=== PATIENT | male | born 1960 | race African-American/Black ===

== ENCOUNTER 2018-11-28 10:41 | Emergency (ER) | payer BC ==
[2018-11-28 10:50] VITALS: BP 148/71; PULSE 77; TEMP 98.2; BMI 35.3
--- NOTE | 2018-11-28 11:57 | PDOC ---
History of Present Illness - General Chief Complaint: Lightheaded Stated Complaint: DIZZINESS Time Seen by Provider: 11/28/18 11:23 Past History - Past Medical History Allergies/Adverse Reactions: Allergies Allergy/AdvReac Type Severity Reaction Status Date / Time No Known Allergies Allergy Verified 11/28/18 10:46 Home Medications: Ambulatory Orders Meclizine HCl 25 mg PO TID #30 tablet 11/28/18 COPD: No CHF: No DVT: No Dementia: No HTN: Yes - Immunization History Immunization Up to Date: Yes - Suicide/Smoking/Psychosocial Hx Smoking History: Never smoked Hx Alcohol Use: No Drug/Substance Use Hx: No *Physical Exam - Vital Signs Last Vital Signs Temp Pulse Resp BP Pulse Ox 98.2 F 77 18 148/71 98 11/28/18 10:47 11/28/18 10:47 11/28/18 10:47 11/28/18 10:47 11/28/18 10:47 ED Treatment Course - LABORATORY CBC & Chemistry Diagram: 11/28/18 12:25 11/28/18 12:25 *DC/Admit/Observation/Transfer Diagnosis at time of Disposition: Dizziness - Discharge Dispostion Disposition: HOME Condition at time of disposition: Stable Decision to Admit order: No - Prescriptions Prescriptions: Meclizine HCl 25 mg PO TID #30 tablet - Referrals Referrals: Patricio Coburn MD [Primary Care Provider] - Aj Jaramillo MD [Staff Physician] - Cole Michel MD [Staff Physician] - - Patient Instructions Printed Discharge Instructions: DI for Vertigo Additional Instructions: You were evaluated for your dizziness. Your physical exam and lab work was normal today Please take the Meclizine every 8 hours as needed for dizziness Drink plenty of fluids Follow up with both ENT (Dr. Jaramillo's group) and Neurology (Dr. Michel) Return to the ED for increased dizziness, vomiting, or if you have any changes in your symptoms - Post Discharge Activity Forms/Work/School Notes: Back to Work
[2018-11-28] MEDS ORDERED: MECLIZINE HCL 25 MG TABLET (FP) PO ONE (12:01)
[2018-11-28] MEDS ORDERED: SODIUM CHLORIDE 1,000 ML IV STA (12:01)
[2018-11-28] MEDS ORDERED: MECLIZINE HCL 25 MG TABLET (FP) ONE (12:43)
[2018-11-28 12:53] LABS: BASO % 0.9 % (0-2.0); EOS % 1.6 % (0-4.5); HEMATOCRIT 43.6 % (35.4-49); HEMOGLOBIN 14.9 GM/dL (11.7-16.9); LYMPH % 37.8 % (8-40); MCHC 34.2 g/dl (32.0-35.9); MEAN CELL VOLUME 90.5 fl (80-96); MEAN PLT VOLUME 8.6 fl (7.5-11.1); MONO % 9.5 % (3.8-10.2); NEUT % 50.2 % (42.8-82.8); PLATELET COUNT 175 K/MM3 (134-434); RBC 4.81 M/mm3 (4.00-5.60); RDW 13.5 % (11.9-15.9); WHITE BLOOD COUNT 6.3 K/mm3 (4.0-10.0)
[2018-11-28 13:29] LABS: ALBUMIN 3.4 g/dl (3.4-5.0); ALK PHOS 93 U/L (45-117); ANION GAP 4 MMOL/L (8-16); BILIRUBIN,TOTAL 0.9 mg/dL (0.2-1); BLOOD UREA NITROGEN 11 mg/dL (7-18); CALCIUM 8.5 mg/dL (8.5-10.1); CHLORIDE 105 mmol/L (98-107); CO2 27 mmol/L (21-32); CREATININE 0.7 mg/dL (0.55-1.3); GLUCOSE,RANDOM 116 mg/dL (74-106); POTASSIUM 4.9 mmol/L (3.5-5.1); SGOT/AST 34 U/L (15-37); SGPT/ALT 37 U/L (13-61); SODIUM 136 mmol/L (136-145)
[2018-11-28 13:38] LABS: INR 1.08 (0.83-1.09); PROTHROMBIN TIME (PATIENT) 12.7 SEC (9.7-13.0)
--- NOTE | 2018-11-29 14:29 | EKG ---
Test Reason : Blood Pressure : / mmHG Vent. Rate : 060 BPM Atrial Rate : 060 BPM P-R Int : 132 ms QRS Dur : 078 ms QT Int : 392 ms P-R-T Axes : 048 053 051 degrees QTc Int : 392 ms NORMAL SINUS RHYTHM NORMAL ECG NO PREVIOUS ECGS AVAILABLE Confirmed by MD DIONI, MEGAN ([id number]) on 11/29/2018 2:28:54 PM Referred By: Confirmed By:MEGAN WHEATLEY MD
== END 2018-11-28 15:35 | disposition home or self-care (01) ==
LOC: JER 10:41
PROC: 3E0337Z Introduction of Electrolytic and Water Balance Substance into Peripheral Vein, Percutaneous Approach (ICD-10-PCS; principal; 2018-11-28)
DX: R42 Dizziness and giddiness (principal); I10 Essential (primary) hypertension
CPT/HCPCS: 36415; 80053; 82550; 84484; 85025; 85610; 93005; 93010; 99282-25; J7030

== ENCOUNTER 2019-10-27 14:41 | Emergency (ER) | payer BC ==
[2019-10-27 14:49] VITALS: BP 145/98; PULSE 103; TEMP 97.1
--- NOTE | 2019-10-27 14:54 | PDOC ---
Rapid Medical Evaluation Time Seen by Provider: 10/27/19 14:46 Medical Evaluation: Allergies Allergy/AdvReac Type Severity Reaction Status Date / Time No Known Allergies Allergy Verified 11/28/18 10:46 10/27/19 14:47 HPI: The patient is a 59 yr old with no past medical history, who presents for cough, diarrhea 2-3 /day (watery light brown) , chills, temperature tmax 99.0, decreased taste x 5 days. The patient has possible exposure to coronavirus. - Recent travel. Pt is not a smoker and is a prediabetic. They are concerned they have coronavirus and present for testing. Intermittent difficulty breathing, - shortness of breath, -chest pain, -lightheadedness, -dizziness, - nausea, vomiting, and diarrhea. Other 12 point ROS reviewed and negative. EXAM: General: NAD, well-appearing, AO x3. vss ENT: No rhinorrhea or nasal congestion. Neck: FROM, no midline tenderness Lungs: Clear to auscultation bilateral without wheezes rales or rhonchi. Normal excursion. Patient is able to speak in full sentences. Heart: Regular rate and rhythm, S1-S2 present, no murmurs rubs or gallops. Abdomen: Non-distended MSK/Extremities: no decreased ROM, no obvious deformities. No obvious cyanosis Neuro: Normal gait, cranial nerves II through XII grossly intact. SKIN: No rashes, bruising. Color normal appearing A/P: respiratory complaint and diarrhea Patient has no past medical history, denies recent travel and known COVID exposure. Patient does not meet criteria for testing at this time. We will refer the patient to outpatient testing clinics in the [facility] for further monitoring of their symptoms. Strict return precautions given. Instructed that if they should have shortness of breath, chest pain or difficulty breathing to return to the emergency room for further management and treatment. Recommend self-isolation for 14 days given symptoms. Discharge home I discussed the physical exam findings, ancillary test results and final diagnoses with the patient. I answered all of the patient's questions. The patient was satisfied with the care received and felt comfortable with the discharge plan and treatment plan. The Patient agrees to follow up with the primary care physician/specialist within 24-72 hours. Return precautions were given. Discharge Disposition - Diagnosis Cough - Discharge Dispostion Disposition: HOME Condition at time of disposition: Good - Referrals - Patient Instructions Printed Discharge Instructions: [facility] COVID-19 Isolation Protocol, [facility]Coronavirus Instructions Additional Instructions: You were seen for your cough and possible Pelaez virus (COVID-19) Please call [phone] or visit [email or web address] Please call [phone] from 8:30 a.m. - 6 p.m. Take Tylenol 650mg every 6 hours as needed for fever or pain You may take robitussin or other over the counter cough syrup. Follow the dosing instructions on the bottle. Warm tea, honey, and salt water gargles may help your symptoms. Return to the ER for shortness of breath, difficulty breathing, chest pain, or if you have any changes in your symptoms. - Post Discharge Activity
== END 2019-10-27 15:30 | disposition home or self-care (01) ==
LOC: JER 14:41
DX: R05 Cough (principal)
CPT/HCPCS: 99282-25

== ENCOUNTER 2020-06-28 15:04 | Emergency (ER) | payer BC ==
[2020-06-28 15:24] VITALS: BMI 34.7
[2020-06-28] MEDS ORDERED: LACTATED RINGERS SOLUTION 1000 ML INFUS.BAG IV ONE (16:07)
[2020-06-28 16:37] LABS: BASO % 0.9 % (0-2.0); HEMATOCRIT 47.2 % (35.4-49); HEMOGLOBIN 15.6 GM/dL (11.7-16.9); LYMPH % 37.6 % (8-40); MCH 30.2 pg (25.7-33.7); MCHC 33.1 g/dl (32.0-35.9); MEAN PLT VOLUME 8.9 fl (7.5-11.1); MONO % 7.3 % (3.8-10.2); NEUT % 53.2 % (42.8-82.8); PLATELET COUNT 194 K/MM3 (134-434); RBC 5.18 M/mm3 (4.00-5.60); RDW 13.3 % (11.9-15.9); WHITE BLOOD COUNT 7.5 K/mm3 (4.0-10.0)
[2020-06-28 16:57] LABS: CHLORIDE 104 mmol/L (98-107); POTASSIUM 4.1 mmol/L (3.5-5.1); SODIUM 137 mmol/L (136-145)
[2020-06-28 16:59] LABS: ANION GAP 8 MMOL/L (8-16); BLOOD UREA NITROGEN 13.7 mg/dL (7-18); CO2 25 mmol/L (21-32); GLUCOSE,RANDOM 102 mg/dL (74-106)
[2020-06-28 17:03] LABS: SGOT/AST 43 U/L (15-37); SGPT/ALT 42 U/L (13-61)
[2020-06-28 17:04] LABS: BILIRUBIN,TOTAL 1.6 mg/dL (0.2-1); TOT PROT 7.6 g/dl (6.4-8.2)
[2020-06-28 17:05] LABS: ALK PHOS 78 U/L (45-117)
[2020-06-28 18:53] LABS: EPI CELLS 33 /uL (0-25.1); HYALINE CASTS 5 /uL (0-3.1); URINE APPEARANCE CLEAR; URINE BACTERIA 784 /uL (0-1359); URINE BILIRUBIN NEGATIVE (NEGATIVE); URINE COLOR YELLOW; URINE GLUCOSE (UA) NEGATIVE (NEGATIVE); URINE KETONE NEGATIVE (NEGATIVE); URINE LEUK ESTERASE 1+ (NEGATIVE); URINE NITRITE NEGATIVE (NEGATIVE); URINE PROTEIN NEGATIVE (NEGATIVE); URINE RBC 5 /uL (0-23.9); URINE WBC 67 /uL (0-25.8)
[2020-06-28 19:25] VITALS: BP 110/72; PULSE 77; TEMP 98.2
== END 2020-06-28 19:25 | disposition home or self-care (01) ==
LOC: JER 15:04
DX: R42 Dizziness and giddiness (principal)
CPT/HCPCS: 36415; 80053; 81003; 82962; 84484; 85025; 93005; 93010; 99285-25

== ENCOUNTER 2022-05-05 16:48 | Emergency (ER) | payer BC ==
[2022-05-05 16:53] VITALS: TEMP 97.8; BMI 35.9
[2022-05-05] MEDS ORDERED: MECLIZINE HCL 25 MG TABLET (FP) PO ONE (19:21)
[2022-05-05] MEDS ORDERED: MECLIZINE HCL 25 MG TABLET (FP) ONE (19:35)
[2022-05-05 20:06] LABS: BASO % 0.9 % (0-2.0); EOS % 1.8 % (0-4.5); HEMATOCRIT 46.3 % (35.4-49); HEMOGLOBIN 15.6 GM/dL (11.7-16.9); LYMPH % 40.4 % (8-40); MCH 30.6 pg (25.7-33.7); MCHC 33.6 g/dl (32.0-35.9); MEAN PLT VOLUME 8.4 fl (7.5-11.1); MONO % 7.9 % (3.8-10.2); PLATELET COUNT 193 10^3/uL (134-434); RBC 5.09 M/mm3 (4.00-5.60); RDW 13.2 % (11.9-15.9); WHITE BLOOD COUNT 7.4 K/mm3 (4.0-10.0)
[2022-05-05 20:27] LABS: ALBUMIN 3.8 g/dl (3.4-5.0); BLOOD UREA NITROGEN 10.2 mg/dL (7-18); CALCIUM 9.1 mg/dL (8.5-10.1)
[2022-05-05 20:31] LABS: CREATININE 0.9 mg/dL (0.55-1.3)
[2022-05-05 20:32] LABS: TOT PROT 7.5 g/dl (6.4-8.2)
[2022-05-05 22:10] VITALS: BP 118/74; PULSE 76; RESP 20
== END 2022-05-05 22:08 | disposition home or self-care (01) ==
LOC: JER 16:48
DX: R42 Dizziness and giddiness (principal)
CPT/HCPCS: 36415; 70450-TC; 71045-TC-FY; 80053; 84484; 85025; 93005; 93010; 99285-25

== ENCOUNTER 2023-04-20 05:36 | Emergency (ER) | payer BC, OTHER ==
[2023-04-20 05:44] VITALS: BP 147/76; PULSE 64; RESP 20; TEMP 97.5; BMI 35.9
[2023-04-20] MEDS ORDERED: ACETAMINOPHEN 500 MG TABLET (FP) PO ONE (07:43)
[2023-04-20] MEDS ORDERED: METHOCARBAMOL 750 MG TABLET PO ONE (07:44)
[2023-04-20] MEDS ORDERED: LIDOCAINE 5% TOPICAL PATCH TP ONE (07:44)
[2023-04-20] MEDS ORDERED: METHOCARBAMOL 500 MG TABLET ONE (07:51)
[2023-04-20] MEDS ORDERED: LIDOCAINE 5% TOPICAL PATCH ONE (07:52)
[2023-04-20] MEDS ORDERED: ACETAMINOPHEN 325 MG TABLET (FP) ONE (07:52)
[2023-04-20] MEDS ORDERED: KETOROLAC TROMETHAMINE 30 MG/1 ML VIAL IM ONE (08:57)
[2023-04-20] MEDS ORDERED: KETOROLAC TROMETHAMINE 30 MG/1 ML VIAL ONE (09:04)
[2023-04-20] MEDS ORDERED: LIDOCAINE PATCH REMOVAL MC ONE (22:00)
== END 2023-04-20 09:52 | disposition home or self-care (01) ==
LOC: JER 05:36
PROC: 3E0233Z Introduction of Anti-inflammatory into Muscle, Percutaneous Approach (ICD-10-PCS; principal; 2023-04-20)
DX: M54.6 Pain in thoracic spine (principal); S29.011A Strain of muscle and tendon of front wall of thorax, initial encounter; X58.XXXA Exposure to other specified factors, initial encounter
CPT/HCPCS: 71046-TC-FY; 93005; 93010; 99284-25

== ENCOUNTER 2023-06-13 01:09 | Emergency (ER) | payer BC, OTHER ==
[2023-06-13 01:21] VITALS: BP 158/83; PULSE 78; RESP 18; TEMP 97.4; BMI 35.9
[2023-06-13 02:07] LABS: BASO % 0.9 % (0-2.0); EOS % 1.9 % (0-4.5); HEMATOCRIT 43.1 % (35.4-49); HEMOGLOBIN 15.1 GM/dL (11.7-16.9); LYMPH % 43.1 % (8-40); MCH 30.9 pg (25.7-33.7); MEAN CELL VOLUME 88.4 fl (80-96); MEAN PLT VOLUME 8.3 fl (7.5-11.1); MONO % 8.1 % (3.8-10.2); PLATELET COUNT 210 10^3/uL (134-434); RBC 4.87 M/mm3 (4.00-5.60); WHITE BLOOD COUNT 8.1 K/mm3 (4.0-10.0)
[2023-06-13 02:29] LABS: POTASSIUM 4.1 mmol/L (3.5-5.1)
[2023-06-13 02:32] LABS: CALCIUM 8.4 mg/dL (8.5-10.1)
[2023-06-13 02:33] LABS: ALBUMIN 3.5 g/dl (3.4-5.0); BLOOD UREA NITROGEN 12.4 mg/dL (7-18)
[2023-06-13] MEDS ORDERED: SODIUM CHLORIDE 0.9% 500 ML INFUS.BAG IV ONE (02:35)
[2023-06-13 02:36] LABS: CREATININE 1.1 mg/dL (0.55-1.3)
[2023-06-13] MEDS ORDERED: MECLIZINE HCL 25 MG TABLET (FP) PO ONE (02:36)
[2023-06-13 02:38] LABS: BILIRUBIN,TOTAL 0.7 mg/dL (0.2-1); TOT PROT 6.8 g/dl (6.4-8.2)
[2023-06-13] MEDS ORDERED: MECLIZINE HCL 25 MG TABLET (FP) ONE (02:45)
[2023-06-13 04:18] LABS: EPI CELLS >36 /uL (0-25.1); HYALINE CASTS 1 /uL (0-3.1); URINE APPEARANCE CLEAR; URINE BACTERIA 349 /uL (0-1359); URINE BILIRUBIN NEGATIVE (NEGATIVE); URINE COLOR DK YELLOW; URINE GLUCOSE (UA) NEGATIVE (NEGATIVE); URINE KETONE TRACE (NEGATIVE); URINE LEUK ESTERASE 1+ (NEGATIVE); URINE NITRITE NEGATIVE (NEGATIVE); URINE PROTEIN NEGATIVE (NEGATIVE); URINE RBC 14 /uL (0-23.9); URINE WBC 66 /uL (0-25.8)
== END 2023-06-13 05:35 | disposition home or self-care (01) ==
LOC: JER 01:09
DX: R42 Dizziness and giddiness (principal); H92.09 Otalgia, unspecified ear
CPT/HCPCS: 36415; 70450-TC; 71046-TC-FY; 80053; 81003; 84484; 85025; 87086; 93005; 93010; 99285-25

== ENCOUNTER 2023-06-14 12:36 | Observation (INO) | payer BC, OTHER ==
[2023-06-14 15:47] LABS: BASO % 1.3 % (0-2.0); EOS % 1.7 % (0-4.5); HEMATOCRIT 47.5 % (35.4-49); HEMOGLOBIN 15.8 GM/dL (11.7-16.9); LYMPH % 44.5 % (8-40); MCHC 33.3 g/dl (32.0-35.9); MEAN CELL VOLUME 90.3 fl (80-96); MEAN PLT VOLUME 8.2 fl (7.5-11.1); MONO % 7.2 % (3.8-10.2); NEUT % 45.3 % (42.8-82.8); PLATELET COUNT 220 10^3/uL (134-434); RBC 5.26 M/mm3 (4.00-5.60); WHITE BLOOD COUNT 7.3 K/mm3 (4.0-10.0)
[2023-06-14 15:55] LABS: EPI CELLS 21 /uL (0-25.1); HYALINE CASTS 0 /uL (0-3.1); PH,URINE 5.5 (5.0-8.0); URINE APPEARANCE CLEAR; URINE BACTERIA 427 /uL (0-1359); URINE BILIRUBIN NEGATIVE (NEGATIVE); URINE COLOR YELLOW; URINE GLUCOSE (UA) NEGATIVE (NEGATIVE); URINE KETONE NEGATIVE (NEGATIVE); URINE LEUK ESTERASE 1+ (NEGATIVE); URINE NITRITE NEGATIVE (NEGATIVE); URINE PROTEIN NEGATIVE (NEGATIVE); URINE RBC 7 /uL (0-23.9); URINE UROBILINOGEN 0.2 mg/dL (0.2-1.0); URINE WBC 87 /uL (0-25.8)
[2023-06-14 16:14] LABS: CALCIUM 8.5 mg/dL (8.5-10.1)
[2023-06-14 16:15] LABS: ALBUMIN 3.6 g/dl (3.4-5.0); BLOOD UREA NITROGEN 9.8 mg/dL (7-18)
[2023-06-14 16:18] LABS: CREATININE 0.9 mg/dL (0.55-1.3)
[2023-06-14 16:19] LABS: BILIRUBIN,TOTAL 1.2 mg/dL (0.2-1)
[2023-06-14 16:20] LABS: TOT PROT 7.5 g/dl (6.4-8.2)
[2023-06-14] MEDS ORDERED: CEFTRIAXONE 1,000 MG in DEXTROSE 5%-WATER - 50 ML IVPB ONE (16:54)
[2023-06-14] MEDS ORDERED: CEFTRIAXONE 1 GM/50 ML BAG ONE (16:56)
[2023-06-15 03:44] VITALS: RESP 18; BMI 37.3
[2023-06-15] MEDS ORDERED: MECLIZINE HCL 25 MG TABLET (FP) PO PRN (04:02)
[2023-06-15] MEDS: MECLIZINE HCL 25 MG TABLET (FP) PO SCH ×3 (06:01→21:22)
[2023-06-15] MEDS: INSULIN SLIDING SCALE (NOVOLOG) 1 VIAL SQ SCH ×3 (06:06→16:08)
[2023-06-15] MEDS: LOSARTAN POTASSIUM 50 MG TABLET PO SCH (09:48)
[2023-06-15] MEDS: ENOXAPARIN NA (PORCINE) 40 MG/0.4 ML DISP.SYRIN SQ SCH (09:55)
[2023-06-15] MEDS ORDERED: CEFTRIAXONE 1 GM in DEXTROSE 5%-WATER - 50 ML IVPB SCH (10:00)
[2023-06-15 10:46] LABS: HEMATOCRIT 47.9 % (35.4-49); HEMOGLOBIN 16.2 GM/dL (11.7-16.9); MCH 30.7 pg (25.7-33.7); MCHC 33.7 g/dl (32.0-35.9); MEAN PLT VOLUME 9.4 fl (7.5-11.1); PLATELET COUNT 181 10^3/uL (134-434); RBC 5.26 M/mm3 (4.00-5.60)
[2023-06-15 11:10] LABS: CALCIUM 8.8 mg/dL (8.5-10.1)
[2023-06-15 11:11] LABS: BLOOD UREA NITROGEN 12.6 mg/dL (7-18)
[2023-06-15 11:12] LABS: MAGNESIUM 2.1 mg/dL (1.8-2.4)
[2023-06-15 11:14] LABS: PHOSPHOROUS 2.9 mg/dL (2.5-4.9)
[2023-06-15] MEDS ORDERED: SODIUM CHLORIDE 1,000 ML IV SCH (18:15)
[2023-06-15] MEDS: ROSUVASTATIN CA 20 MG TABLET PO SCH (21:22)
[2023-06-16] MEDS: INSULIN SLIDING SCALE (NOVOLOG) 1 VIAL SQ SCH ×3 (06:30→18:06)
[2023-06-16] MEDS: MECLIZINE HCL 25 MG TABLET (FP) PO SCH (06:30)
[2023-06-16] MEDS: LOSARTAN POTASSIUM 50 MG TABLET PO SCH (10:02)
[2023-06-16 10:34] LABS: HEMATOCRIT 42.3 % (35.4-49); HEMOGLOBIN 14.5 GM/dL (11.7-16.9); MCH 31.1 pg (25.7-33.7); MCHC 34.3 g/dl (32.0-35.9); MEAN CELL VOLUME 90.6 fl (80-96); MEAN PLT VOLUME 8.5 fl (7.5-11.1); PLATELET COUNT 198 10^3/uL (134-434); RBC 4.67 M/mm3 (4.00-5.60); RDW 12.9 % (11.9-15.9); WHITE BLOOD COUNT 6.4 K/mm3 (4.0-10.0)
[2023-06-16] MEDS: ENOXAPARIN NA (PORCINE) 40 MG/0.4 ML DISP.SYRIN SQ SCH (10:37)
[2023-06-16 11:03] LABS: POTASSIUM 3.6 mmol/L (3.5-5.1)
[2023-06-16 11:17] LABS: CALCIUM 8.1 mg/dL (8.5-10.1)
[2023-06-16 11:21] LABS: BLOOD UREA NITROGEN 12.1 mg/dL (7-18)
[2023-06-16 11:24] LABS: CREATININE 0.9 mg/dL (0.55-1.3)
[2023-06-16] MEDS ORDERED: ALPRAZolam 1 MG TABLET PO ONE (16:30)
[2023-06-16] MEDS: ROSUVASTATIN CA 20 MG TABLET PO SCH (21:50)
[2023-06-17] MEDS: INSULIN SLIDING SCALE (NOVOLOG) 1 VIAL SQ SCH ×2 (06:59→10:35)
[2023-06-17 08:24] VITALS: BP 144/94; PULSE 67; TEMP 97.2
[2023-06-17 09:06] LABS: HEMATOCRIT 47.2 % (35.4-49); HEMOGLOBIN 15.7 GM/dL (11.7-16.9); MCH 30.2 pg (25.7-33.7); MCHC 33.2 g/dl (32.0-35.9); MEAN CELL VOLUME 91.1 fl (80-96); MEAN PLT VOLUME 8.4 fl (7.5-11.1); PLATELET COUNT 198 10^3/uL (134-434); RBC 5.18 M/mm3 (4.00-5.60); RDW 12.7 % (11.9-15.9); WHITE BLOOD COUNT 7.2 K/mm3 (4.0-10.0)
[2023-06-17] MEDS: LOSARTAN POTASSIUM 50 MG TABLET PO SCH (09:23)
[2023-06-17 09:24] LABS: POTASSIUM 4.2 mmol/L (3.5-5.1)
[2023-06-17 09:29] LABS: BLOOD UREA NITROGEN 12.1 mg/dL (7-18); CALCIUM 8.6 mg/dL (8.5-10.1)
[2023-06-17 09:32] LABS: CREATININE 0.9 mg/dL (0.55-1.3)
[2023-06-17] MEDS: ENOXAPARIN NA (PORCINE) 40 MG/0.4 ML DISP.SYRIN SQ SCH (09:53)
[2023-06-17] MEDS ORDERED: INSULIN (NOVOLOG) ASPART 100 UNITS/ML 10ML VIAL ONE (10:30)
== END 2023-06-17 15:14 | disposition home or self-care (01) ==
LOC: JER 12:36 → JERBED 18:20 → J6S 06-15 01:48
PROVIDERS: ADMIT Internal Medicine; ATTEND Internal Medicine
PROC: 3E03329 Introduction of Other Anti-infective into Peripheral Vein, Percutaneous Approach (ICD-10-PCS; principal; 2023-06-14)
PROC: 3E023GC Introduction of Other Therapeutic Substance into Muscle, Percutaneous Approach (ICD-10-PCS; 2023-06-14)
PROC: 3E013VG Introduction of Insulin into Subcutaneous Tissue, Percutaneous Approach (ICD-10-PCS; 2023-06-14)
PROC: 3E0337Z Introduction of Electrolytic and Water Balance Substance into Peripheral Vein, Percutaneous Approach (ICD-10-PCS; 2023-06-14)
DX: H81.10 Benign paroxysmal vertigo, unspecified ear (principal); E11.9 Type 2 diabetes mellitus without complications; E78.00 Pure hypercholesterolemia, unspecified; I10 Essential (primary) hypertension; Z72.0 Tobacco use
CPT/HCPCS: 0241U-QW; 36415; 70450-TC; 70551-TC; 71046-TC-FY; 80048; 80053; 81003; 82962; 83036; 83735; 84100; 84484; 85025; 85027; 87086; 93005; 93010; 93306-TC; 93880-TC; 97116-GP; 97161-GP; 99285-25; G0378